=== PATIENT | male | born 1960 | race Caucasian/White ===

== ENCOUNTER 2017-02-07 11:08 | Emergency (ER) | payer SELFPAY ==
[~2017-02-07] VITALS: Ht 177.8 cm; Wt 92.0 kg
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
[2017-02-07 11:30] VITALS: BP 137/79; PULSE 105; RESP 18; TEMP 98.1; O2SAT 93
[2017-02-07 11:36] VITALS: O2SAT 93
[2017-02-07] MEDS ORDERED: MORPHINE SULFATE 4 MG/ML INJ IV PUSH ONE (11:45)
[2017-02-07] MEDS ORDERED: SODIUM CHLOR 0.9% 1000 ML INJ 1,000 ML IV ONE (11:45)
--- NOTE | 2017-02-07 11:46 | RADRPT ---
EXAM DATE/TIME: 02/07/2017 11:38 [facility] COMPARISON: No previous studies available for comparison. INDICATIONS : Chest pain. MEDICAL HISTORY : None. SURGICAL HISTORY : None. ENCOUNTER: Initial ACUITY: 1 day PAIN SCORE: 9/10 LOCATION: Chest, midline. FINDINGS: A single view of the chest demonstrates the lungs to be symmetrically aerated without evidence of mas s, infiltrate or effusion. The heart size is moderately enlarged.. Osseous structures are intact. CONCLUSION: 1. No acute pulmonary infiltrates. 2. Cardiomegaly. Benjamin Hernadez MD on February 07, 2017 at 11:43 Board Certified Radiologist. This report was verified electronically.
[2017-02-07 11:59] LABS: AUTOMATED NEUTROPHIL # 8.4 TH/MM3 (1.8-7.7); BASOPHIL % 0.4 % (0.0-2.0); EOSINOPHIL % 0.1 % (0.0-4.0); HEMATOCRIT 42.4 % (39.0-51.0); HEMO FLAGS DIFF FINAL; LYMPH % 16.9 % (9.0-44.0); LYMPHOCYTE # 1.8 TH/MM3 (1.0-4.8); MEAN CELL VOLUME 84.5 FL (80.0-100.0); MEAN CORPUSCULAR HEMOGLOBIN 28.5 PG (27.0-34.0); MEAN CORPUSCULAR HGB CONC 33.7 % (32.0-36.0); MONO % 5.1 % (0.0-8.0); NEUT % 77.5 % (16.0-70.0); PLATELET COUNT 205 TH/MM3 (150-450); RED BLOOD COUNT 5.02 MIL/MM3 (4.50-5.90); WHITE BLOOD COUNT 10.9 TH/MM3 (4.0-11.0)
[2017-02-07 12:10] LABS: APTT (PATIENT) 28.9 SEC (24.3-30.1)
[2017-02-07] MEDS ORDERED: IOHEXOL 350 MG/ML 10 ML VIAL (for RAD DIAG) IV ONE (12:15)
[2017-02-07 12:17] LABS: ALT (GPT) 29 U/L (12-78); ANION GAP 18 MEQ/L (5-15); AST (GOT) 23 U/L (15-37); BICARBONATE 19.3 MEQ/L (21.0-32.0); BLOOD UREA NITROGEN 20 MG/DL (7-18); CHLORIDE 98 MEQ/L (98-107); GLOMERULAR FILTRATION RATE 65 ML/MIN (>89); POTASSIUM 3.7 MEQ/L (3.5-5.1); SODIUM (NA) 135 MEQ/L (136-145)
[2017-02-07 12:18] LABS: MAGNESIUM 2.3 MG/DL (1.5-2.5)
[2017-02-07 12:20] LABS: ALKALINE PHOSPHATASE 57 U/L (45-117)
[2017-02-07 12:21] LABS: CREATINE KINASE 268 U/L (39-308)
[2017-02-07 12:26] VITALS: BP 134/80; PULSE 99; RESP 20; O2SAT 94
--- NOTE | 2017-02-07 12:36 | RADRPT ---
EXAM DATE/TIME: 02/07/2017 12:08 [facility] COMPARISON: No previous studies available for comparison. INDICATIONS : Chest pain and coughing up blood since this morning. IV CONTRAST: 75 cc Omnipaque 350 (iohexol) IV RADIATION DOSE: 23.42 CTDIvol (mGy) MEDICAL HISTORY : Cardiovascular disease. Hypertension. Schizophrenic SURGICAL HISTORY : None. ENCOUNTER: Initial ACUITY: 1 day PAIN SCALE: 10/10 LOCATION: Bilateral chest TECHNIQUE: Volumetric scanning of the chest was performed using a pulmonary embolism protocol MIP images were re constructed. Using automated exposure control and adjustment of the mA and/or kV according to patien t size, radiation dose was kept as low as reasonably achievable to obtain optimal diagnostic quality images. DICOM format image data is available electronically for review and comparison. FINDINGS: PULMONARY ARTERIES: There is limited visualization of the pulmonary arteries from poor contrast-enhancement. However no d efinite filling defects are seen in the main pulmonary arteries. LUNGS: There is no consolidation or pneumothorax . No concerning pulmonary nodule is visualized. PLEURAE: There is no pleural thickening or pleural effusion. MEDIASTINUM: There is good visualization of the great vessels of the middle mediastinum. No evidence of mediastin al or hilar adenopathy/mass. MUSCULOSKELETAL: Within normal limits for patient age. MISCELLANEOUS: The visualized upper abdominal organs demonstrate no acute abnormality. There is fatty infiltration o f the liver. CONCLUSION: 1. Limited study due to poor opacification of pulmonary arteries. However, no definite filling defect s are seen in the main pulmonary arteries. If this requires further evaluate a VQ scan could be perf ormed if clinically indicated. 2. No acute pulmonary infiltrates. 3. Fatty infiltration of the liver. Benjamin Hernadez MD on February 07, 2017 at 12:31 Board Certified Radiologist. This report was verified electronically.
[2017-02-07 12:47] LABS: CKMB 1.8 NG/ML (0.5-3.6)
[2017-02-07 14:11] LABS: BLOOD, URINE TRACE (NEG); COMMENT (UR) CULT NOT INDICATED; CULTURE IF INDICATED CULT NOT INDICATED; GLUCOSE,URINE NEG (NEG); HYALINE CAST, URINE 11 /lpf (RARE); KETONE, URINE 10 mg/dL (NEG); MUCUS URINE FEW /lpf (OCC); NITRITE,URINE NEG (NEG); PH, URINE 5.5 (5.0-8.5); URINE COLOR YELLOW (YELLW/STRAW)
[2017-02-07 14:14] LABS: AMPHETAMINE, URINE NEG (NEG); BARBITURATES, URINE NEG (NEG); COCAINE, URINE NEG (NEG)
--- NOTE | 2017-02-09 08:44 | EKG ---
Date Performed: 02/07/2017 Time Performed: 11:19:50 PTAGE: 56 years EKG: SINUS TACHYCARDIA ABNORMAL RHYTHM ECG NO PREVIOUS TRACING DOCTOR: Jeremiah Ray Interpretating Date/Time 02/09/2017 08:41:28
== END 2017-02-07 15:48 | disposition home or self-care (01) ==
LOC: NEPC 11:08
DX: R07.89 Other chest pain (principal); F10.10 Alcohol abuse, uncomplicated; R04.2 Hemoptysis; R42 Dizziness and giddiness; R94.31 Abnormal electrocardiogram [ECG] [EKG]; Z59.0 Homelessness; Z86.59 Personal history of other mental and behavioral disorders
CPT/HCPCS: 71010; 71275; 80053; 80307; 81001; 82550; 82552; 83735; 84484; 85025; 85610; 85730; 93005; 96361; 96374; 99285; J2270; J7030; Q9967

== ENCOUNTER 2017-02-07 15:19 | Emergency (ER) | payer SELFPAY ==
[2017-02-07 15:21] VITALS: BP 138/84; PULSE 89; RESP 16; TEMP 98.2; O2SAT 99
--- NOTE | 2017-02-07 15:41 | PD ---
HPI Chief Complaint: Medical Clearance Time Seen by Provider: 15:36 Travel History International Travel<30 days: No Contact w/Intl Traveler<30days: No Traveled to known affect area: No History of Present Illness HPI PATIENT WAS SEEN RECENTLY (FEW MINUTES AGO) BY PA AND D/C HOME AFTER I SUPERVISED THE VISIT AND CAREPLAN. PFSH Past Medical History Bipolar Disorder: Yes Cardiovascular Problems: Yes (htn) Chest Pain: Yes Hypertension: Yes Medical other: Yes (sciatica) Psychiatric: Yes (bipolar, schizophrenia) Immunizations Current: Yes Tetanus Vaccination: > 5 Years Influenza Vaccination: No Past Surgical History Surgical History: No Previous Surgery Social History Alcohol Use: Yes Tobacco Use: No Substance Use: No Allergies-Medications (Allergen,Severity, Reaction): Coded Allergies: No Known Allergies (Unverified , 02/07/17) Reported Meds & Prescriptions Reported Meds & Active Scripts Active No Active Prescriptions or Reported Medications Physical Exam Narrative GENERAL: SKIN: Warm and dry. HEAD: Atraumatic. Normocephalic. EYES: Pupils equal and round. No scleral icterus. No injection or drainage. ENT: No nasal bleeding or discharge. Mucous membranes pink and moist. NECK: Trachea midline. No JVD. CARDIOVASCULAR: Regular rate and rhythm. RESPIRATORY: No accessory muscle use. Clear to auscultation. Breath sounds equal bilaterally. GASTROINTESTINAL: Abdomen soft, non-tender, nondistended. Hepatic and splenic margins not palpable. MUSCULOSKELETAL: Extremities without clubbing, cyanosis, or edema. No obvious deformities. NEUROLOGICAL: Awake and alert. No obvious cranial nerve deficits. Motor grossly within normal limits. Five out of 5 muscle strength in the arms and legs. Normal speech. PSYCHIATRIC: Appropriate mood and affect, PT IS MALINGERING Data Data Last Documented VS Vital Signs Date Time Temp Pulse Resp B/P Pulse Ox O2 Delivery O2 Flow Rate FiO2 02/07/17 15:21 98.2 89 16 138/84 99 MDM Medical Decision Making Medical Screen Exam Complete: Yes Emergency Medical Condition: No Medical Record Reviewed: Yes Differential Diagnosis N/A Narrative Course PT ARRIVED EARLIER IN MORNING LOOKING FOR A PLACE TO STAY AND LWBS, THEN RETURNED BY EMS C/O CP. RONALD FRYE AND MYSELF SAW PATIENT TOGETHER AND AFTER BLOODWORK AND CT CHEST PT WAS D/C. AT THIS POINT PATIENT STARTED STATING THAT HE WANTED A PLACE TO STAY AND THAT IF HE WAS D/C HE WAS GOING TO COME RIGHT BACK AND CHECK IN AGAIN THIS TIME CLAIMING PSYCHIATRIC COMPLAINT SO HE CAN BE RO[facility] ACTED AND STAY HERE. THE PATIENT DID EXACTLY WHAT HE SAID HE WOULD DO AND RECHECKED BACK IN TO TRIAGE STATING C/O ANXIETY. PATIENT IS SHOWING A DELIBERATE PLAN AND EXECUTED SUCH FOR THE SHEER GAIN OF STAYING ON PREMISES AND TO BE FED. PATIENT AT NO POINT TRULY WAS SUICIDAL NOR HOMICIDAL BUT JUST USING IT A MEANS TO AN END OF STAYING AT HOSPITAL FOR PENITENTIARY AND FOOD. I ADVISED PATIENT THAT I COULD GET [employer] TO ASSIST WITH PENITENTIARY PLACEMENT BUT THAT COMING TO THE HOSPITAL AND LYING TO STAFF WELL [facility] HAS MISUSED/ MISAPPROPRIATED [facility]. Diagnosis Primary Impression: MALINGERING Scripts No Active Prescriptions or Reported Meds Disposition: 01 DISCHARGE HOME Condition: Stable Pio Ballard MD Feb 07, 2017 15:41
== END 2017-02-07 16:08 | disposition home or self-care (01) ==
LOC: NEPC 15:19
DX: Z76.5 Malingerer [conscious simulation] (principal); Z86.59 Personal history of other mental and behavioral disorders; Z86.79 Personal history of other diseases of the circulatory system
CPT/HCPCS: 99281

== ENCOUNTER 2017-02-07 19:23 | Emergency (ER) | payer OTHER ==
[2017-02-07 20:49] VITALS: BP 149/87; PULSE 114; RESP 20; TEMP 98.3; O2SAT 97
[2017-02-07] MEDS ORDERED: SODIUM CHLORIDE 0.9% FLUSH 10 ML FLUSH IVF PRN (21:15)
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
[2017-02-07] MEDS ORDERED: SODIUM CHLOR 0.9% 1000 ML INJ 1,000 ML IV ONE ×2 (21:30→23:45)
[2017-02-07 22:24] LABS: AMPHETAMINE, URINE NEG (NEG); BARBITURATES, URINE NEG (NEG); COCAINE, URINE NEG (NEG)
[2017-02-07] MEDS ORDERED: LORazepam 1 MG TAB PO ONE (22:45)
[2017-02-07] MEDS ORDERED: KETOROLAC TROMETHAMINE 30 MG/ML (IVP) VIAL IV PUSH ONE (22:45)
[2017-02-07 23:21] LABS: ANION GAP 18 MEQ/L (5-15); BICARBONATE 17.9 MEQ/L (21.0-32.0); BLOOD UREA NITROGEN 20 MG/DL (7-18); CHLORIDE 96 MEQ/L (98-107); GLOMERULAR FILTRATION RATE 65 ML/MIN (>89); MAGNESIUM 2.1 MG/DL (1.5-2.5); POTASSIUM 3.8 MEQ/L (3.5-5.1); SODIUM (NA) 132 MEQ/L (136-145)
[2017-02-07 23:23] LABS: ALT (GPT) 30 U/L (12-78); AST (GOT) 29 U/L (15-37)
[2017-02-07 23:26] LABS: ALKALINE PHOSPHATASE 55 U/L (45-117); CREATINE KINASE 490 U/L (39-308); TOTAL BILIRUBIN ADULT 1.5 MG/DL (0.2-1.0)
[2017-02-07 23:38] LABS: CKMB 4.1 NG/ML (0.5-3.6)
[2017-02-08 06:13] VITALS: BP 141/85; PULSE 121; RESP 18; TEMP 98.2
--- NOTE | 2017-02-09 07:48 | EKG ---
Date Performed: 02/07/2017 Time Performed: 22:01:34 PTAGE: 56 years EKG: SINUS TACHYCARDIA ABNORMAL RHYTHM ECG NO PREVIOUS TRACING DOCTOR: Jeremiah Ray Interpretating Date/Time 02/09/2017 07:45:27
== END 2017-02-08 09:37 | disposition home or self-care (01) ==
LOC: NEPD 19:23 → NEPJ 02-08 09:37
DX: Z02.89 Encounter for other administrative examinations (principal); R45.851 Suicidal ideations; F10.10 Alcohol abuse, uncomplicated; R07.89 Other chest pain; R00.0 Tachycardia, unspecified; I10 Essential (primary) hypertension; Z86.59 Personal history of other mental and behavioral disorders
CPT/HCPCS: 80053; 82550; 82552; 83735; 84484; 93005; 96361; 96374; 99284; J1885; J7030; 80307